=== PATIENT | female | born 1960 | race African-American/Black ===

== ENCOUNTER → 2017-06-30 | Outpatient (CLI) | payer MEDICARE, OTHER ==
[~2017-06-30] MED LIST: CLONAZEPAM 0.50.5 M1; GEODON40 MG; HYDROCHLOROTH12.5 M1; HYDROCODONE-AP1 EAC6 PO; LIPITOR10 MG; LISINOPRIL20 MG; NORVASC5 MG; PROAIR HFA8.5 GM; ROBAXIN 750 MG750 M1 PO; SYMBICORT160 MCG/4.; SYNTHROID50 MCG PO; TOPAMAX25 M1; TRILEPTAL150 MG PO; TRILEPTAL600 MG; ZESTORETIC 20-1 EAC2 PO; ZOLOFT50 MG
== END ==
LOC: M.RAD 06-29 08:22
DX: R10.31 Right lower quadrant pain (principal)

== ENCOUNTER 2017-08-11 18:25 | Emergency (ER) | payer MEDICARE, OTHER ==
[~2017-08-11] VITALS: Ht 165.1 cm; Wt 87.1 kg
[~2017-08-11 18:25] MED LIST changes: -SYNTHROID50 MCG PO
[2017-08-11] MEDS ORDERED: SYNTHROID50 MCG PO (18:33)
[2017-08-11 18:45] LABS: ABSOLUTE BASOPHILS 0.1 thou/uL (0.0-0.2); ABSOLUTE EOSINOPHILS 0.2 thou/uL (0.0-0.7); ABSOLUTE LYMPHOCYTES 2.1 thou/uL (0.8-5.3); ABSOLUTE MONOCYTES 0.5 thou/uL (0.0-1.2); ABSOLUTE NEUTROPHILS 3.2 thou/uL (1.6-8.1); BASOPHILS 0.8 %; EOSINOPHILS 2.6 %; HEMATOCRIT 38.6 % (37.0-47.0); HEMOGLOBIN 13.1 gm/dL (12.0-15.0); LYMPHOCYTES 35.3 %; MCH 28.4 pg (26.0-34.0); MCHC 33.8 g/dL (28.0-37.0); MONOCYTES 7.7 %; MPV 7.3 fl. (7.2-11.1); NUCLEATED RBCS 0 /100WBC; PLATELET COUNT* 279 thou/uL (150-400); POLYS 53.6 %; RDW-CV 13.4 % (10.5-14.5); WBC 5.9 thou/uL (4.0-11.0)
[2017-08-11 18:52] LABS: ANION GAP 10 mmol/L (7-16); BUN 13 mg/dL (7-18); CALCIUM 8.5 mg/dL (8.5-10.1); CHLORIDE 109 mmol/L (98-107); CO2 23 mmol/L (21-32); CREATININE 1.3 mg/dL (0.6-1.3); GLUCOSE 124 mg/dL (70-99); POTASSIUM 3.4 mmol/L (3.5-5.1); SODIUM 142 mmol/L (136-145)
[2017-08-11 18:57] LABS: APTT 27.1 Seconds (25.0-31.3); INR 1.1; PROTIME 10.4 Seconds (9.20-11.50)
[2017-08-11 19:08] LABS: ALBUMIN 3.4 g/dL (3.4-5.0); ALKALINE PHOSPHATASE 110 U/L (46-116); CK-MB MASS < 0.5 ng/mL (<0.5-3.6); LIPASE 173 U/L (73-393); MAGNESIUM 1.9 mg/dL (1.8-2.4); NT-PRO BRAIN NAT PEPTIDE 236 pg/mL (<300); SGOT 15 U/L (15-37); SGPT 22 U/L (30-65); TOTAL BILIRUBIN 0.4 mg/dL (<0.1-1.0); TOTAL PROTEIN 7.5 g/dL (6.4-8.2); TROPONIN-I LEVEL <0.06 ng/mL (<0.06)
[2017-08-11 20:23] VITALS: BP 151/85
--- NOTE | 2017-08-12 13:03 | EKG ---
[place] [address] ELECTROCARDIOGRAM REPORT Name: SHADY SHARMA Room: [facility]#: [id number] Admission: 08/11/17 Attend Phys: Discharge: 08/11/17 Date of : 62 Report #: [id number] THIS REPORT FOR: //name// [facility] ED Test Date: 2017-08-11 Test Time: 18:29:29 Pat Name: SHADY SHARMA Department: Room: Gender: F [employer]: : 1960 Requested By: Sudeep Mata Order Number: [id number] MD: Emanuel Meng Measurements Intervals [place] Rate: 88 P: 55 HI: 137 QRS: 5 QRSD: 70 T: -5 QT: 377 QTc: 457 Interpretive Statements Sinus rhythm Abnormal R-wave progression, early transition Borderline T abnormalities, inferior leads Baseline wander in lead(s) V3 Compared to ECG 06/17/2005 07:33:23 No significant changes Electronically Signed On 08-12-2017 13:03:14 CDT by Emanuel Meng [email or web address] <ELECTRONICALLY SIGNED> By: Emanuel Meng MD, [facility] 08/12/17 1303 1829 1829 Emanuel Meng MD, [facility] /EPI
== END 2017-08-11 20:24 | disposition home or self-care (01) ==
LOC: M.ERS 18:25
PROVIDERS: Family Medicine
DX: R07.89 Other chest pain (principal); R20.0 Anesthesia of skin; I10 Essential (primary) hypertension; E78.5 Hyperlipidemia, unspecified; J45.909 Unspecified asthma, uncomplicated; G43.909 Migraine, unspecified, not intractable, without status migrainosus; F41.9 Anxiety disorder, unspecified; F32.9 Major depressive disorder, single episode, unspecified; G89.29 Other chronic pain; M54.5 Low back pain; M79.7 Fibromyalgia; Z88.6 Allergy status to analgesic agent; Z88.8 Allergy status to other drugs, medicaments and biological substances; Z90.710 Acquired absence of both cervix and uterus

== ENCOUNTER → 2018-03-11 | Outpatient (CLI) | payer MEDICARE, OTHER ==
[~2018-03-11] MED LIST changes: +SYNTHROID50 MCG PO
== END ==
LOC: M.MRI 03-04 17:30
DX: M51.16 Intervertebral disc disorders with radiculopathy, lumbar region (principal); M51.37 Other intervertebral disc degeneration, lumbosacral region; M51.27 Other intervertebral disc displacement, lumbosacral region; M48.062 Spinal stenosis, lumbar region with neurogenic claudication